=== PATIENT | male | born 1985 | race Caucasian/White ===

== ENCOUNTER 2018-03-27 12:41 | Emergency (ER) | payer MEDICAID ==
[~2018-03-27] VITALS: Ht 183.5 cm; Wt 75.0 kg
[~2018-03-27 12:41] MED LIST: CLIN300C85 PO; HYDR-569 PO; ZOF4T PO
[2018-03-27 13:37] VITALS: BP 109/71
== END 2018-03-27 13:38 | disposition home or self-care (01) ==
LOC: ER 12:42
DX: S60.561A Insect bite (nonvenomous) of right hand, initial encounter (principal); J45.909 Unspecified asthma, uncomplicated; F17.200 Nicotine dependence, unspecified, uncomplicated; F12.90 Cannabis use, unspecified, uncomplicated; Z79.2 Long term (current) use of antibiotics; Z79.899 Other long term (current) drug therapy; W57.XXXA Bitten or stung by nonvenomous insect and other nonvenomous arthropods, initial encounter; Y93.89 Activity, other specified; Y92.89 Other specified places as the place of occurrence of the external cause; Y99.8 Other external cause status
CPT/HCPCS: 99281

== ENCOUNTER 2018-11-02 21:18 | Emergency (ER) | payer MEDICAID, OTHER ==
[~2018-11-02] VITALS: Ht 182.9 cm; Wt 75.0 kg
[~2018-11-02 21:18] MED LIST changes: +CLIN-96 PO; -CLIN300C85 PO; +HYDR-4383 PO; -HYDR-569 PO
[2018-11-02 21:19] VITALS: BP 140/91
[2018-11-02] MEDS ORDERED: LIDO20SO16 PO (22:59)
== END 2018-11-02 23:57 | disposition home or self-care (01) ==
LOC: ER 21:19
DX: J02.8 Acute pharyngitis due to other specified organisms (principal); B97.89 Other viral agents as the cause of diseases classified elsewhere; J45.909 Unspecified asthma, uncomplicated; F12.90 Cannabis use, unspecified, uncomplicated
CPT/HCPCS: 87081; 87880; 99283

== ENCOUNTER 2019-05-25 08:20 | Emergency (ER) | payer OTHER ==
[~2019-05-25] VITALS: Ht 180.3 cm; Wt 75.0 kg
[~2019-05-25 08:20] MED LIST changes: +LIDO20SO16 PO
[2019-05-25 08:24] VITALS: BP 125/89
[2019-05-25] MEDS ORDERED: GUAI237S46 PO (08:49)
== END 2019-05-25 09:26 | disposition home or self-care (01) ==
LOC: ER 08:21
DX: J06.9 Acute upper respiratory infection, unspecified (principal); J45.909 Unspecified asthma, uncomplicated; F17.200 Nicotine dependence, unspecified, uncomplicated; F12.90 Cannabis use, unspecified, uncomplicated; Z79.2 Long term (current) use of antibiotics; Z79.899 Other long term (current) drug therapy
CPT/HCPCS: 99282

== ENCOUNTER 2019-10-05 16:29 | Emergency (ER) | payer MEDICAID ==
[~2019-10-05] VITALS: Ht 182.9 cm; Wt 74.9 kg
[~2019-10-05 16:29] MED LIST changes: +CLIN-90 PO; -CLIN-96 PO; +LIDOcaine 1% W/epiNEPHrine 1:100,000 20ml vial ONE
[2019-10-05 16:35] VITALS: BP 133/86
[2019-10-05] MEDS ORDERED: TETanus/Pertussis (Acell)/Diphther VAC/PF (Tdap-Adult) 0.5ml syringe IMVAC ONE (17:00)
== END 2019-10-05 18:10 | disposition home or self-care (01) ==
LOC: ER 16:29
DX: S61.012A Laceration without foreign body of left thumb without damage to nail, initial encounter (principal); J45.909 Unspecified asthma, uncomplicated; F17.200 Nicotine dependence, unspecified, uncomplicated; F12.90 Cannabis use, unspecified, uncomplicated; Z79.2 Long term (current) use of antibiotics; Z79.899 Other long term (current) drug therapy; W01.0XXA Fall on same level from slipping, tripping and stumbling without subsequent striking against object, initial encounter; Y93.89 Activity, other specified; Y92.89 Other specified places as the place of occurrence of the external cause; Y99.8 Other external cause status
CPT/HCPCS: 12001; 90471; 90715; 99283

== ENCOUNTER 2019-10-08 17:21 | Emergency (ER) | payer MEDICAID ==
[~2019-10-08] VITALS: Ht 182.9 cm; Wt 74.0 kg
[~2019-10-08 17:21] MED LIST changes: -CLIN-90 PO; +CLIN-97 PO; -LIDOcaine 1% W/epiNEPHrine 1:100,000 20ml vial ONE
[2019-10-08 17:23] VITALS: BP 136/101
[2019-10-08] MEDS ORDERED: ROBCFL PO (19:16)
[2019-10-08] MEDS ORDERED: BENZ-16 PO (19:16)
== END 2019-10-08 19:19 | disposition home or self-care (01) ==
LOC: ER 17:22
DX: J45.909 Unspecified asthma, uncomplicated (principal); F17.200 Nicotine dependence, unspecified, uncomplicated; Z91.030 Bee allergy status
CPT/HCPCS: 71045; 99283

== ENCOUNTER 2022-05-31 09:50 | Emergency (ER) | payer MEDICAID ==
[~2022-05-31] VITALS: Ht 180.3 cm; Wt 74.8 kg
[2022-05-31 10:07] VITALS: BP 143/93
[2022-05-31] MEDS ORDERED: AMOX-117 PO (10:32)
[2022-05-31] MEDS ORDERED: IBUP-1986 PO (10:33)
[2022-05-31] MEDS ORDERED: CHLO118M PO (10:33)
== END 2022-05-31 10:44 | disposition home or self-care (01) ==
LOC: ER 09:51
DX: K04.7 Periapical abscess without sinus (principal); J45.909 Unspecified asthma, uncomplicated; Z91.030 Bee allergy status
CPT/HCPCS: 41800; 99284; A6449

== ENCOUNTER 2022-10-18 01:32 | Emergency (ER) | payer MEDICAID ==
[~2022-10-18] VITALS: Ht 182.9 cm; Wt 75.0 kg
[~2022-10-18 01:32] MED LIST changes: +CHLO118M PO; +IBUP-1986 PO
[2022-10-18 01:42] VITALS: BP 156/112
[2022-10-18] MEDS ORDERED: BUPIVAcaine 0.5% W/EPI /PF 10ml vial IJ STA (02:52)
[2022-10-18] MEDS ORDERED: amox tr/potassium clavulanate 875/125mg TAB PO ONE (03:10)
[2022-10-18] MEDS ORDERED: AMOX-580 PO (03:12)
== END 2022-10-18 03:29 | disposition home or self-care (01) ==
LOC: ER 01:33
DX: K08.89 Other specified disorders of teeth and supporting structures (principal); J45.909 Unspecified asthma, uncomplicated; Z91.030 Bee allergy status
CPT/HCPCS: 64400; 99284